=== PATIENT | female | born 1975 | race Caucasian/White ===

== ENCOUNTER → 2016-09-24 | Outpatient (REF) | payer BC | LOC: M LAB REF 17:08 | PROVIDERS: ATTEND Family Medicine | DX: J02.9 Acute pharyngitis, unspecified (principal) ==

== ENCOUNTER → 2018-04-07 | Outpatient (REF) | payer BC ==
[2018-04-11 14:38] LABS: HPV LOW VOL RFLX Negative (Negative)
== END ==
LOC: M LAB REF 17:45
PROVIDERS: ATTEND Advanced Practice Midwife
DX: Z12.4 Encounter for screening for malignant neoplasm of cervix (principal); Z11.51 Encounter for screening for human papillomavirus (HPV)
CPT/HCPCS: 87624; G0123

== ENCOUNTER → 2018-04-10 | Outpatient (CLI) | payer BC ==
[2018-04-10 13:46] LABS: ALBUMIN 3.8 GM/DL (3.2-5.2); ALT/SGPT 18 U/L (12-78); BILIRUBIN,TOTAL 0.6 MG/DL (0.2-1.0); BLOOD UREA NITROGEN 13 MG/DL (7-18); CALCIUM LEVEL 8.6 MG/DL (8.5-10.1); CARBON DIOXIDE LEVEL 26 MEQ/L (21-32); CHLORIDE LEVEL 109 MEQ/L (98-107); CHOLESTEROL LEVEL 196 MG/DL (<200); CHOLESTEROL RISK RATIO 2.925 (<5); CREATININE FOR GFR 0.87 MG/DL (0.55-1.30); FREE T4 0.99 NG/DL (0.76-1.46); GLOMERULAR FILTRATION RATE > 60.0 (>58); GLUCOSE, FASTING 87 MG/DL (70-100); HDL CHOLESTEROL 67 MG/DL (>40); LDL CHOLESTEROL 111 MG/DL (<100); NON-HDL-C 129 MG/DL; POTASSIUM SERUM 5.1 MEQ/L (3.5-5.1); SODIUM LEVEL 141 MEQ/L (136-145); TOTAL PROTEIN 7.1 GM/DL (6.4-8.2); TRIGLYCERIDES LEVEL 88 MG/DL (<150)
[2018-04-10 13:48] LABS: BASO % 0.3 % (0.0-1.0); EOS # 0.1 10^3/uL (0.0-0.50); EOS % 1.1 % (0.0-3.0); HEMATOCRIT 40.6 % (36.0-47.0); HEMOGLOBIN 13.8 g/dl (12.0-15.5); LYMPH # 2.2 10^3/uL (1.5-4.5); LYMPH % 30.6 % (24.0-44.0); MEAN CORPUSCULAR HEMOGLOBIN 31.7 pg (27.0-33.0); MEAN CORPUSCULAR VOLUME 93.1 fl (80.0-96.0); MONO # 0.7 10^3/uL (0.0-0.8); MONO % 9.6 % (0.0-5.0); NEUTROPHILS # 4.2 10^3/uL (1.8-7.7); NEUTROPHILS % 58.1 % (36.0-66.0); PLATELET COUNT, AUTOMATED 219 10^3/uL (150-450); RED BLOOD COUNT 4.36 10^6/uL (4.00-5.40); WHITE BLOOD COUNT 7.3 10^3/uL (4.0-10.0)
== END ==
LOC: M SMT 10:38
PROVIDERS: ATTEND Physician Assistant Medical
DX: R09.82 Postnasal drip (principal)

== ENCOUNTER → 2018-12-31 | Outpatient (REF) | payer BC ==
[2018-12-31 16:57] LABS: CHOLESTEROL RISK RATIO 2.632 (<5)
== END ==
LOC: M LABDRAW1 15:31
DX: E55.9 Vitamin D deficiency, unspecified (principal); E78.2 Mixed hyperlipidemia

== ENCOUNTER → 2019-02-26 | Outpatient (CLI) | payer BC ==
[2019-02-26 11:32] LABS: HEMATOCRIT 39.5 % (36.0-47.0); HEMOGLOBIN 13.3 g/dl (12.0-15.5); MEAN CORPUSCULAR HEMOGLOBIN 32.1 pg (27.0-33.0); MEAN CORPUSCULAR HGB CONC 33.7 g/dl (32.0-36.5); MEAN CORPUSCULAR VOLUME 95.4 fl (80.0-96.0); PLATELET COUNT, AUTOMATED 238 10^3/uL (150-450); RED BLOOD COUNT 4.14 10^6/uL (4.00-5.40); WHITE BLOOD COUNT 6.7 10^3/uL (4.0-10.0)
[2019-02-26 12:10] LABS: BLOOD UREA NITROGEN 11 MG/DL (7-18); CALCIUM LEVEL 8.5 MG/DL (8.5-10.1); CARBON DIOXIDE LEVEL 28 MEQ/L (21-32); CHLORIDE LEVEL 108 MEQ/L (98-107); GLOMERULAR FILTRATION RATE > 60.0 (>58); GLUCOSE, FASTING 84 MG/DL (70-100); POTASSIUM SERUM 4.5 MEQ/L (3.5-5.1); SODIUM LEVEL 140 MEQ/L (136-145)
--- NOTE | 2019-02-26 17:22 | REP ---
Chest x-ray: Two views. History: Capsular contracture of breast. No comparison views. Findings: The lungs are well inflated and clear. Pleural angles are sharp. Heart size is normal. Pulmonary vasculature is not increased. No significant bony abnormality is seen. Augmentation implants are noted in the breast tissue bilaterally. Impression: No active disease. Electronically Signed by Edd Brown MD 02/26/2019 05:13 P
== END ==
LOC: M LAB 10:47
PROVIDERS: ATTEND Plastic Surgery Surgery of the Hand
DX: T85.44XA Capsular contracture of breast implant, initial encounter (principal)

== ENCOUNTER 2019-03-16 08:02 | Day surgery (SDC) | payer BC ==
[~2019-03-16] VITALS: Ht 170.2 cm; Wt 61.2 kg
[~2019-03-16 08:02] MED LIST: LIDOCAINE 1% MDV 20ML VIAL SQ PRN; LR 1,000 ML IV ONE; ceFAZolin SOD 1 GM in D5W MINI-BAG PLUS 50 ML IV ONE
[2019-03-16] MEDS ORDERED: ONDANSETRON 4MG/2ML VIAL (J2405) As Ordered ONE (08:34)
[2019-03-16] MEDS ORDERED: ROCURONIUM BROMIDE 50 MG/5 ML VIAL As Ordered ONE ×3 (08:34→12:04)
[2019-03-16] MEDS ORDERED: LIDOCAINE 2% INJ 100 MG/5 ML SDV (FOR ANES.) As Ordered ONE (08:34)
[2019-03-16] MEDS ORDERED: propofoL 200 MG/20 ML VIAL As Ordered ONE (08:34)
[2019-03-16] MEDS ORDERED: dexameTHASONE 4 MG/ML 1ML VIAL (J1100) As Ordered ONE (08:34)
[2019-03-16] MEDS ORDERED: fentaNYL 250 MCG/5 ML INJECTION (J3010) As Ordered ONE (08:35)
[2019-03-16] MEDS ORDERED: MIDAZOLAM INJ 2 MG/2 ML VIAL (J2250) As Ordered ONE (08:35)
[2019-03-16] MEDS ORDERED: SCOPOLAMINE 1MG TRANSDERMAL PATCH As Ordered ONE (09:30)
[2019-03-16] MEDS ORDERED: BACITRACIN PWD 50,000 UNITS VIAL As Ordered ONE (09:44)
[2019-03-16] MEDS ORDERED: BUPIVACAINE LIPOSOME/PF 1.3% 20ML VIAL (13.3MG/ML)(EXPAREL)(C9290 PER1MG) As Ordered ONE (09:44)
[2019-03-16] MEDS ORDERED: SCOPOLAMINE 1MG TRANSDERMAL PATCH TOP ONE (09:45)
[2019-03-16] MEDS ORDERED: LIDOCAINE 1% MDV 20ML VIAL As Ordered ONE (09:48)
[2019-03-16] MEDS ORDERED: LIDOCAINE W/EPINEPHRINE 1% 20ML VIAL As Ordered ONE (09:48)
[2019-03-16] MEDS ORDERED: ACETAMINOPHEN 1000MG 100ML IV BTL (OFIRMEV) (J0131 PER 10MG) As Ordered ONE (11:08)
[2019-03-16] MEDS ORDERED: KETOROLAC 60 MG/2 ML VIAL (J1885) As Ordered ONE (13:53)
[2019-03-16] MEDS ORDERED: SUGAMMADEX SODIUM 500 MG/5 ML VIAL (BRIDION) As Ordered ONE (13:55)
--- NOTE | 2019-03-16 14:15 | POST-OPPD ---
Postoperative Procedure Note Date Of Procedure: Mar 16, 2019 PREOPERATIVE DIAGNOSIS: Bilateral breast symptomatic capsular contraction and ptosis. POSTOPERATIVE DIAGNOSIS: same FINDINGS: Capsular contraction b/l breast PROCEDURE: Bilateral breast implants removal, open capsulotomy, breast reconstruction with placement of new breast implants and mastopexy. SURGEON: Dr Mabry ANESTHESIA: General SPECIMENS: Right and left breast implants. Right and left capsule tissue, right and left breast skin tissue. ESTIMATED BLOOD LOSS: 10 cc REPLACED: none DRAINS: none COMPLICATIONS: none POSTOPERATIVE CONDITION: stable [id number] NANO MABRY DO Mar 16, 2019 14:15
[2019-03-16] MEDS ORDERED: fentaNYL 100 MCG/2 ML INJECTION (J3010) As Ordered ONE (14:17)
[2019-03-16] MEDS ORDERED: OXYC1TAB23 PO (14:25)
[2019-03-16] MEDS ORDERED: ALBUTEROL SULFATE 2.5 MG/0.5 ML INH NEB SOLN As Ordered ONE (14:41)
[2019-03-16] MEDS ORDERED: HYDROMORPHONE HCL 0.5 MG/ 0.5 ML SYRINGE (J1170 PER 1) IV PRN (15:00)
[2019-03-16] MEDS ORDERED: PERCOCET 5MG/325MG TAB PO PRN (15:00)
[2019-03-16] MEDS ORDERED: LR 1,000 ML IV SCH (15:00)
[2019-03-16] MEDS ORDERED: ALBUTEROL SULFATE 2.5 MG/0.5 ML INH NEB SOLN INH ONE (15:00)
[2019-03-16] MEDS ORDERED: fentaNYL 100 MCG/2 ML INJECTION (J3010) IV PRN (15:00)
[2019-03-16] MEDS ORDERED: ONDANSETRON 4MG/2ML VIAL (J2405) IV PRN (15:00)
[2019-03-16] MEDS ORDERED: IBUPROFEN 600 MG TAB PO ONE (17:00)
[2019-03-16 17:35] VITALS: BP 113/68
--- NOTE | 2019-03-16 19:18 | RO ---
DATE OF PROCEDURE: 03/16/2019 PREPROCEDURE DIAGNOSIS: Bilateral breast symptomatic capsule contraction and ptosis. POSTPROCEDURE DIAGNOSIS: Bilateral breast symptomatic capsule contraction and ptosis. OPERATIVE PROCEDURE: Bilateral breast implants removal, open capsulotomy, breast reconstruction and placement of new breast implants and mastopexy. SURGEON: Rachelle Carpenter DO ANESTHESIA: General. SPECIMENS: 1. Right and left breast implants. 2. Right and left capsule tissue. 3. Right and left breast skin tissue. ESTIMATED BLOOD LOSS: 10 mL. REPLACED: None. DRAINS: None. COMPLICATIONS: None. INDICATION FOR THE PROCEDURE: This is a 43-year-old female who has longstanding saline shaped implants. She developed capsule contraction, more on the right than on the left with significant ptosis and deformity of the implants. The patient is scheduled for repair, plan for removing the implants, doing open capsulotomy, sending capsule for testing and placing new implants and giving her a lift. We discussed all the risks, benefits and alternatives of the procedure in detail and she is ready to proceed. DESCRIPTION OF PROCEDURE: On the day of surgery, she was marked in the upright position. Her IMF was 18 cm from sternal notch and her nipple areolar complex is at 24. She is going to be needing a mastopexy. After the markings were completed, she was brought into the operating room, placed in supine position, preoperative antibiotics were given, sequential stockings placed on the lower calves. General anesthesia was induced. She is prepped and draped in usual sterile fashion. With the outlined nipple areolar complex at 42 mm in diameter and it was scored, also the lollipop incision pattern was scored in her breast as well. Then we made an inferior and vertical incision and dissection with a Bovie was carried out until the implant was identified. It is in prepectoral position. It was removed completely intact. It is 350 mL, textured shaped implant was saline filled. It looks intact and normal shell. The capsule has some thickening on the inferior portion of the pocket which was resected and sent to pathology. An open capsulotomy was performed under direct vision with the lighted retractor, then we placed a sizer, was a 250 mL which was a good fit for the patient and the keyhole area on skin was de-epithelized and nipple areolar complex was moved into hits new position and sutured in place. Then, the inferior portion of the excess tissue was measured and de-epithelized. Then we created the sling to make a new pocket for the implant. The permanent implant was then placed. The pocket was closed with interrupted #3-0 Vicryl sutures in layers and then vertical layer was closed with interrupted #3-0 Monocryl sutures as well. Vertical limb was 7 cm. Excess tissue inferiorly was measured then resected. It was de-epithelized and then placed in the inferior portion of the breast and the lower lateral incision was closed in layers as well. Nipple areolar complex was finished off closing with a running #5-0 plain gut suture. Then we turned our attention to the left side and a mirror procedure was carried out. Nipple areolar complex measured at 42 mm in diameter. It was scored as well with a lollipop incision, then we opened the breast through the inferior vertical scar. 350 mL textured saline filled implant was evacuated still fully intact. Then we examined the pocket. It was in good condition, thin normal capsule. We did an open capsulotomy and then 250 mL sizer was placed into the area. We de-epithelized the area of the nipple areolar complex new positioning and then we started suturing it in place with interrupted #3-0 Monocryl sutures. Then, the pocket was emptied and irrigated and hemostasis obtained, and then the new 250 mL gel implant [place] was placed into the cavity. The inferior portion of the skin was de-epithelized and used as a sling which was recreating the inferior portion of the pocket and we sutured it in place with #3-0 Vicryl sutures. The vertical limb was closed with interrupted #3-0 Monocryl sutures as well. Excess tissue inferiorly was measured and dissected creating a horizontal scar which was closed in #3-0 Monocryl sutures. Of note Exparel was given to the patient in both pectoralis muscles, 7 mL on each side and also the cavity was wiped with Betadine prep before the implants were placed. The nipple areolar complex on the left also was sutured in with #5-0 plain gut suture, then Prineo bulky dressing and a Xeroform at the nipple areolar complex were placed and a surgical bra as well. The patient was extubated in the operating room without any difficulties and transferred to the recovery room in stable condition. CATHI
== END 2019-03-16 17:55 | disposition home or self-care (01) ==
LOC: M SDC 08:02
PROVIDERS: ATTEND Plastic Surgery Surgery of the Hand
DX: T85.44XA Capsular contracture of breast implant, initial encounter (principal); Z88.1 Allergy status to other antibiotic agents; Z88.5 Allergy status to narcotic agent; Z91.040 Latex allergy status; Z88.8 Allergy status to other drugs, medicaments and biological substances; F17.218 Nicotine dependence, cigarettes, with other nicotine-induced disorders
CPT/HCPCS: 19316; 19340; 19370; 81025; 88300; 88302; C9290; J0131; J0690; J1100; J1885; J2250; J2405; J3010; L8600

== ENCOUNTER 2019-03-21 11:25 | Emergency (ER) | payer BC ==
[~2019-03-21] VITALS: Ht 170.2 cm; Wt 62.6 kg
[~2019-03-21 11:25] MED LIST changes: -LIDOCAINE 1% MDV 20ML VIAL SQ PRN; -LR 1,000 ML IV ONE; +OXYC1TAB23 PO; -ceFAZolin SOD 1 GM in D5W MINI-BAG PLUS 50 ML IV ONE
[2019-03-21] MEDS ORDERED: ADVITAB PO (11:36)
[2019-03-21] MEDS ORDERED: NS 1,000 ML IV ONE (12:30)
[2019-03-21 13:26] LABS: BASO % 0.3 % (0.0-1.0); EOS # 0.2 10^3/uL (0.0-0.5); EOS % 2.6 % (0.0-3.0); HEMATOCRIT 40.8 % (36.0-47.0); HEMOGLOBIN 13.1 g/dl (12.0-15.5); LYMPH # 1.4 10^3/uL (1.5-5.0); LYMPH % 20.5 % (24.0-44.0); MEAN CORPUSCULAR HGB CONC 32.1 g/dl (32.0-36.5); MEAN CORPUSCULAR VOLUME 96.7 fl (80.0-96.0); MONO # 0.5 10^3/uL (0.0-0.8); MONO % 7.2 % (0.0-5.0); NEUTROPHILS # 4.9 10^3/uL (1.5-8.5); NEUTROPHILS % 69.3 % (36.0-66.0); PLATELET COUNT, AUTOMATED 245 10^3/uL (150-450); RED BLOOD COUNT 4.22 10^6/uL (4.00-5.40)
--- NOTE | 2019-03-21 13:30 | REP ---
Clinical: syncope . Comparison: None . Findings: The ventricles, sulci, and cisterns are normal in position and appearance. Lewis-white differentiation is maintained. No acute intracranial hemorrhage, mass/mass effect, pathology or trauma/injury. No evidence for acute infarction. No extra-axial fluid collection. Calvarium is intact. Paranasal sinuses and mastoid air cells are clear. Impression: Normal noncontrast head CT. No evidence for acute intracranial pathology or trauma/injury. Electronically Signed by Mayo Castro MD 03/21/2019 01:22 P
[2019-03-21 13:58] LABS: BLOOD UREA NITROGEN 10 MG/DL (7-18); CALCIUM LEVEL 9.2 MG/DL (8.5-10.1); CARBON DIOXIDE LEVEL 31 MEQ/L (21-32); CHLORIDE LEVEL 107 MEQ/L (98-107); CREATININE FOR GFR 0.87 MG/DL (0.55-1.30); FREE T4 1.19 NG/DL (0.76-1.46); GLOMERULAR FILTRATION RATE > 60.0 (>58); GLUCOSE, FASTING 91 MG/DL (70-100); MAGNESIUM LEVEL 2.5 MG/DL (1.8-2.4); POTASSIUM SERUM 4.5 MEQ/L (3.5-5.1); SODIUM LEVEL 141 MEQ/L (136-145)
[2019-03-21] MEDS ORDERED: AUGM875T28 PO (14:23)
[2019-03-21] MEDS ORDERED: AUGMENTIN 875 MG TAB PO ONE (14:30)
[2019-03-21 14:35] VITALS: BP 121/73
--- NOTE | 2019-03-21 19:16 | ECGEPIP ---
[facility] - ED Test Date: 2019-03-21 Pat Name: GABRIEL COOK Department: Room: - Gender: Female Rn Social Work: : 1975 Requested By: TIFFANY Richard PA-C Order Number: [id number] Reading MD: Shiva Sweeney Measurements Intervals [place] Rate: 64 P: 71 PA: 151 QRS: 3 QRSD: 65 T: 40 QT: 410 QTc: 423 Interpretive Statements SINUS RHYTHM LOW QRS VOLTAGE IN PRECORDIAL LEADS NONSPECIFIC ST T WAVE CHANGES NO PRIOR ECG FOR COMPARISON Electronically Signed on 03-21-2019 19:16:44 EST by Shiva Sweeney
== END 2019-03-21 14:47 | disposition home or self-care (01) ==
LOC: M ED 11:25
DX: J01.90 Acute sinusitis, unspecified (principal); R42 Dizziness and giddiness; J45.909 Unspecified asthma, uncomplicated; Z87.891 Personal history of nicotine dependence; Z88.1 Allergy status to other antibiotic agents; Z88.5 Allergy status to narcotic agent; Z88.8 Allergy status to other drugs, medicaments and biological substances; Z91.040 Latex allergy status

== ENCOUNTER → 2019-05-10 | Outpatient (REF) | payer BC ==
[~2019-05-10] MED LIST changes: +ADVITAB PO; +AUGM875T28 PO
[2019-05-10 12:47] LABS: BASO % 0.4 % (0.0-1.0); EOS # 0.1 10^3/uL (0.0-0.5); EOS % 1.3 % (0.0-3.0); HEMATOCRIT 40.7 % (36.0-47.0); HEMOGLOBIN 13.6 g/dl (12.0-15.5); LYMPH # 1.7 10^3/uL (1.5-5.0); LYMPH % 25.2 % (24.0-44.0); MEAN CORPUSCULAR HEMOGLOBIN 31.8 pg (27.0-33.0); MEAN CORPUSCULAR HGB CONC 33.4 g/dl (32.0-36.5); MEAN CORPUSCULAR VOLUME 95.1 fl (80.0-96.0); MONO # 0.6 10^3/uL (0.0-0.8); MONO % 8.6 % (0.0-5.0); NEUTROPHILS # 4.4 10^3/uL (1.5-8.5); NEUTROPHILS % 64.1 % (36.0-66.0); PLATELET COUNT, AUTOMATED 241 10^3/uL (150-450); RED BLOOD COUNT 4.28 10^6/uL (4.00-5.40); WHITE BLOOD COUNT 6.8 10^3/uL (4.0-10.0)
[2019-05-10 13:07] LABS: ALBUMIN 3.6 GM/DL (3.2-5.2); ALT/SGPT 22 U/L (12-78); BILIRUBIN,TOTAL 0.7 MG/DL (0.2-1.0); BLOOD UREA NITROGEN 18 MG/DL (7-18); CALCIUM LEVEL 8.7 MG/DL (8.5-10.1); CARBON DIOXIDE LEVEL 27 MEQ/L (21-32); CHLORIDE LEVEL 105 MEQ/L (98-107); CREATININE FOR GFR 0.98 MG/DL (0.55-1.30); GLOMERULAR FILTRATION RATE > 60.0 (>58); GLUCOSE, FASTING 95 MG/DL (70-100); POTASSIUM SERUM 4.4 MEQ/L (3.5-5.1); SODIUM LEVEL 138 MEQ/L (136-145); TOTAL PROTEIN 7.3 GM/DL (6.4-8.2)
== END ==
LOC: M LABDRAW1 11:33
PROVIDERS: ATTEND Nurse Practitioner Family
DX: R53.81 Other malaise (principal)

== ENCOUNTER 2019-05-31 12:10 | Emergency (ER) | payer BC ==
[~2019-05-31] VITALS: Ht 170.2 cm; Wt 66.1 kg
[~2019-05-31 12:10] MED LIST changes: -ALBU8.5H; -FLUTISP; -Holter Monitor
[2019-05-31] MEDS ORDERED: ALBU8.5H (12:19)
[2019-05-31] MEDS ORDERED: FLUTISP (12:19)
[2019-05-31 12:45] LABS: BASO % 0.4 % (0.0-1.0); EOS # 0.1 10^3/uL (0.0-0.5); EOS % 1.1 % (0.0-3.0); HEMATOCRIT 39.5 % (36.0-47.0); HEMOGLOBIN 13.2 g/dl (12.0-15.5); MEAN CORPUSCULAR HEMOGLOBIN 31.3 pg (27.0-33.0); MEAN CORPUSCULAR HGB CONC 33.4 g/dl (32.0-36.5); MEAN CORPUSCULAR VOLUME 93.6 fl (80.0-96.0); MONO # 0.5 10^3/uL (0.0-0.8); MONO % 6.9 % (0.0-5.0); NEUTROPHILS # 4.7 10^3/uL (1.5-8.5); NEUTROPHILS % 64.3 % (36.0-66.0); PLATELET COUNT, AUTOMATED 234 10^3/uL (150-450); RED BLOOD COUNT 4.22 10^6/uL (4.00-5.40); WHITE BLOOD COUNT 7.3 10^3/uL (4.0-10.0)
--- NOTE | 2019-05-31 12:47 | REP ---
REASON: Chest pain FINDINGS: The technique utilized in obtaining the radiograph has magnified the cardiac silhouette and accentuated the interstitial markings. The superior mediastinal structures are midline. The cardiac silhouette is unremarkable in size, shape, and position. The diaphragmatic surfaces of the lungs are regular, and the costophrenic angles are clear. The pulmonary gordon are clear. The imaged osseous structures are intact. IMPRESSION: There is no acute cardiopulmonary disease. Electronically Signed by Sánchez Cheek DO 05/31/2019 03:19 P
[2019-05-31 13:19] LABS: BLOOD UREA NITROGEN 11 MG/DL (7-18); CALCIUM LEVEL 8.6 MG/DL (8.5-10.1); CARBON DIOXIDE LEVEL 24 MEQ/L (21-32); CHLORIDE LEVEL 110 MEQ/L (98-107); CPK CREATINE PHOSPHOKINASE 118 U/L (26-192); CREATININE FOR GFR 0.97 MG/DL (0.55-1.30); GLOMERULAR FILTRATION RATE > 60.0 (>58); GLUCOSE, FASTING 99 MG/DL (70-100); POTASSIUM SERUM 4.2 MEQ/L (3.5-5.1); SODIUM LEVEL 140 MEQ/L (136-145); TROPONIN I < 0.02 NG/ML (< 0.10)
[2019-05-31 13:23] LABS: CK-MB VALUE MASS 1.9 NG/ML (<3.6); MB/CK RELATIVE INDEX 1.61 (< OR =4)
[2019-05-31] MEDS ORDERED: Holter Monitor (13:53)
[2019-05-31 14:17] VITALS: BP 108/69
--- NOTE | 2019-05-31 19:09 | ECGEPIP ---
[facility] - ED Test Date: 2019-05-31 Pat Name: GABRIEL COOK Department: Room: - Gender: Female Publications Editor: desmond : 1975 Requested By: SKYE Can Order Number: [id number] Reading MD: Anabel Goldberg Measurements Intervals [place] Rate: 76 P: 79 GA: 151 QRS: -38 QRSD: 65 T: 41 QT: 401 QTc: 453 Interpretive Statements SINUS RHYTHM WITH OCCASIONAL VENTRICULAR PREMATURE COMPLEXES POSSIBLE LEFT ATRIAL ENLARGEMENT MARKED LEFT AXIS DEVIATION LOW QRS VOLTAGE IN PRECORDIAL LEADS POSSIBLE ANTERIOR MYOCARDIAL INFARCTION, PROBABLY OLD POSSIBLE INFERIOR MYOCARDIAL INFARCTION, PROBABLY OLD INTERPRETATION BASED ON A DEFAULT AGE OF 38 YEARS Electronically Signed on 05-31-2019 19:08:53 EDT by Anabel Goldberg
== END 2019-05-31 14:30 | disposition home or self-care (01) ==
LOC: M ED 12:10
DX: I49.3 Ventricular premature depolarization (principal); Z88.5 Allergy status to narcotic agent; Z88.1 Allergy status to other antibiotic agents; Z88.3 Allergy status to other anti-infective agents; Z91.040 Latex allergy status; Z79.899 Other long term (current) drug therapy

== ENCOUNTER → 2019-05-31 | Outpatient (CLI) | payer BC ==
[~2019-05-31] MED LIST changes: +ALBU8.5H; +FLUTISP; +Holter Monitor
--- NOTE | 2019-06-02 02:19 | HOLTMON ---
[facility] Test Date: 2019-05-31 Pat Name: GABRIEL COOK Department: Room: - Gender: Female Clinical Trial Educator: Oanh Trotter/NOA DAMON : 1975 Requested By: SKYE Can Order Number: [id number] Reading MD: Skye Sandoval Interpretive Statements Patient had a 24 hour holter monitor for palpitations. There was extensive artifact. Underlying rhythm was sinus. There were no significant pauses.. Patient experienced 2724 ventricular beats and 464 supraventicular beats in 20 hours. Patient's diary events were associated with PVCs and supraventricular bigeminy. Patient has potentially symptomatic ectopy and has been referred to cardiology. Electronically Signed on 06-02-2019 2:19:40 EDT by Skye Sandoval
== END ==
LOC: M EKG 14:55
PROVIDERS: ATTEND Internal Medicine
DX: R00.2 Palpitations (principal)